=== PATIENT | male | born 1955 ===

== ENCOUNTER 2025-11-14 14:28 | Outpatient (AMB) | payer OTHER, SELFPAY ==
--- NOTE | 2025-11-14 14:30 | A.OFFVIS_ITS ---
Intake Visit Reasons: follow up / medications HPI Comments Details: 70 years old man with Parkinson's disease and insomnia who was initially diagnosed with Parkinson's in 2014 and [place]. He is presenting for a follow-up visit for management of Parkinson's disease. He has a 10-year history of Parkinson's disease and reports ongoing symptoms of twitching, teeth clenching, and balance issues. He currently takes carbidopa- levodopa 1.5 tablets four times a day at 7 AM, 11 AM, 3 PM, and 7 PM. The patient reports dyskinesia in his legs and states his worst symptoms occur between 2 PM and 7 PM. He also experiences intermittent neuropathy in his feet, which he feels for about 10 minutes when going to bed or in the morning, but it resolves with walking. He reports excessive sweating. He has a history of anxiety and depression, for which he takes diazepam as needed and bupropion. 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 He also struggles with poor sleep, getting 4-5 hours per night and waking up around 3 or 4 AM, and occasionally takes half a pill of trazodone. Despite his symptoms, the patient remains active, working out daily and climbing three flights of stairs ten times every day. He wears a mouth guard at night for teeth clenching but reports it is ineffective. Review of Systems Narrative - Neurological: Reports twitching, balance problems, dyskinesia in legs, and teeth clenching. - Reports intermittent neuropathy in feet that resolves with walking. - Denies teeth grinding. - Psychiatric: Reports anxiety and depression related to functional decline. 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 - Reports excessive sweating and chronically cold hands. Physical Exam Neuro Other: Mental Status: Alert and oriented to person, place, and time. Normal attention. Normal spontaneous speech, fluency, and comprehension. Affect is anxious. Cranial Nerves: CN II: Visual ray full to confrontation, visual acuity intact. CN III, IV, : Pupils equal, round, reactive to light and accommodation. Extraocular movements are normal. CN V: Facial sensation is normal. CN VII: Facial movements symmetrical. CN VIII: Hearing intact to bedside conversation is normal. CN IX, X: Palate elevates symmetrically. CN XI: Shoulder shrug and head turn symmetrical. CN XII: Tongue midline without atrophy or fasciculations. Extrapyramidal: Full facial expressions and blinking. No rigidity. Movements are appropriate with no tremor or abnormality. Speech: Normal; no dysarthria or tremor. Assessment & Plan Assessment & Plan (1) Parkinson disease: Comment: MRI brain WO at [facility] in Jun 2024: Mild atrophy and mild MVD. 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 To address his afternoon dyskinesia, I recommended he experiment with reducing his 3 PM dose from 1.5 tablets to 1 tablet, cautioning it could potentially slow him down. For his bothersome teeth clenching, I proposed Botox injections as a treatment option and explained that we would first seek pre-authorization from his insurance, as the medication is expensive, before proceeding. We also agreed to increase his bupropion to 300 mg daily to better manage his depression. The patient inquired about stem cell therapy, and I advised against pursuing such treatments in other countries like [place] at this time, as they are not approved in the [place] and I would not recommend them. Medications: New onabotulinumtoxinA (Botox) 100 units intramuscularly every 3 months; 1 ea 0RF bupropion HCl XL 300 mg PO QAM 90 tabs 0RF carbidopa-levodopa 25-100 mg (Sinemet) 1.5 tabs PO QID 540 tabs 0RF 90 days Coding Level of Care Code Est Pt Level 4 (51192) Diagnoses Parkinson's disease without dyskinesia or fluctuating manifestations G20.A1 Dyskinesia presence: without dyskinesia Fluctuating manifestations: without fluctuating manifestations Insomnia due to medical condition G47.01 Insomnia type: due to medical condition Anxiety F41.9 Oral dystonia G24.4
--- OUTSIDE RECORDS SUMMARY | 2025-11-14 16:50 | XMS_ITS | Clinical Summary ---
Author Organization [facility] [address] Address [address] [place] [address] Phone Care Team Providers Care Plate Printer Name Role Phone Isabel Blackburn MD Primary Care Provider Allergies No known active allergies Medications losartan (COZAAR) 50 mg tabletIndications :Primary hypertension Take 1 tablet (50 mg total) by mouth 2 (two) times a day. 180 tablet 1 5 Active buPROPion XL (WELLBUTRIN XL) 150 mg 24 hr tabletIndications :Anxiety and depression Take 1 tablet (150 mg total) by mouth 1 (one) time each day in the morning. Do not crush, chew, or split. 90 tablet 1 5 Active diazePAM (VALIUM) 5 mg tablet Take 1 tablet (5 mg total) by mouth 1 (one) time each day. Active carbidopa-levodop a CR (SINEMET CR) 25-100 mg per CR tablet Take 1.5 tablets by mouth 4 (four) times a day. Do not crush, chew, or split. Per neuro Active amLODIPine (NORVASC) 2.5 mg tablet Take 1 tablet (2.5 mg total) by mouth 1 (one) time each day. As needed if BP > 140/90 Active Active Problems Problem Noted Date Diagnosed Date Anxiety and depression 06/21/2024 Parkinson's disease 06/21/2024 Primary hypertension 06/21/2024 Surgical History Surgery Date Site/Laterality Comments CHOLECYSTECTOMY PROCEDURE: HISTORICAL CHOLECYSTECTOMY Medical History Medical History Date Comments H. pylori infection 06/22/2024 DX:H. pylori infection Family History Relation Name Status Comments Father Mother Social History Tobacco Use Types Packs/Day Years Used Date Smoking Tobacco: Never Smokeless Tobacco: Never Tobacco Cessation:Counseling Given: Not Answered Alcohol Use Standard Drinks/Week Comments Not Currently 0 (1 standard drink = 0.6 oz pur e alcohol) Sex and Gender Information Value Date Recorded Sex Assigned at Not on file Legal Sex Male 11:04 AM EDT Gender Identity Not on file Sexual Orientation Not on file Last Filed Vital Signs Vital Sign Reading Time Taken Comments Blood Pressure 175/100 07/12/2025 9:36 AM EDT Pulse 65 07/12/2025 9:36 AM EDT Temperature 36.1 C (97 F) 03/08/2025 9:23 AM EDT Respiratory Rate 16 03/08/2025 9:23 AM EDT Oxygen Saturation - - Inhaled Oxygen Concentration - - Weight 81.2 kg (179 lb) 07/12/2025 9:36 AM EDT Height 177.8 cm (5' 10 ) 07/12/2025 9:36 AM EDT Body Mass Index 25.68 07/12/2025 9:36 AM EDT Plan of Treatment Upcoming Encounters Date Type Department Care Team (Late st Contact Info) Description 12/20/2025 9:00 AM EST Office Visit Adult Medicine - [place] [address] [place] [id number] Isabel Blackburn MD [address] [place] [address] Health Maintenance Due Date Last Done Comments Colorectal Cancer Screening: Colonoscopy 1955 Drug Screen 1955 Non-Opioid Controlled Substance Agreement 1955 Pneumococcal Vaccine: 50+ Years (1 of 1 - PCV) 2004 Zoster Vaccines (1 of 2) 2004 Hepatitis C Screening 06/09/2024 Social Influencers of Health Screening 06/09/2024 COVID-19 Vaccine ( - 2024-2 6 season) 2025 Influenza Vaccine (#1) 2025 Falls Risk Assessment 12/01/2025 12/01/2024 , 12/01/2024 Medicare Annual Wellness Visit 12/01/2025 12/01/2024 Hypertension/CHF/CAD Annual BMP Blood Test 07/12/2026 07/12/2025, 06/21/2024, 06/21/2024 RSV Immunization Adult Patients (1 - 1-dose 75+ series) 2029 Cholesterol Screening (Lipid Panel) 07/12/2030 07/12/2025 DTaP,Tdap,and Td Vaccines (2 - Td or Tdap) 04/22/2035 04/22/2025 Depression Screening Completed 12/01/2024 HIB Vaccines Aged Out No longer eligi ble based on patient's age to complete this topic HPV Vaccines Aged Out No longer eligi ble based on patient's age to complete this topic Hepatitis A Vaccines Aged Out No long er eligible based on patient's age to complete this topic Hepatitis B Vaccines Aged Out No long er eligible based on patient's age to complete this topic IPV Vaccines Aged Out No longer eligi ble based on patient's age to complete this topic MMR Vaccines Aged Out No longer eligi ble based on patient's age to complete this topic Meningococcal ACWY Vaccine Aged Out N o longer eligible based on patient's age to complete this topic Meningococcal B Vaccine Aged Out No l onger eligible based on patient's age to complete this topic RSV Immunization Patients Under 20 months Aged Out No longer eligible b ased on patient's age to complete this topic Varicella Vaccines Aged Out No longer eligible based on patient's age to complete this topic Procedures Procedure Name Priority Date/Time Associated Diagnosis Comments COMPREHENSIVE METABOLIC PANEL Routine 07/12/2025 10:29 AM EDT Primary hypertension LIPID PANEL WITH REFLEX TO DIRECT LDL Routine 07/12/2025 10:29 AM EDT Encounter for lipid screening for cardiovascular disease from Last 3 Months or Most Recently Relevant to Health Maintenance Results * Lipid panel with reflex to direct LDL (07/12/2025 10:29 AM EDT) [facility] Cholesterol 153 0 - 200 mg/dL LAB CHEMISTRY METHOD 07/12/2025 3:55 PM EDT [facility] Triglycerides 58 0 - 150 mg/dL LAB CHEMISTRY METHOD 07/12/2025 3:55 PM EDT [facility] HDL 66 >=40 mg/dL LAB CHEMISTRY METHOD 07/12/2025 3:55 PM EDT [facility] LDL Calculated 75 0 - 100 mg/dL LAB CHEMISTRY METHOD 07/12/2025 3:55 PM EDT [facility] Comment:Estimated LDL Calcul ated using equation: Total cholesterol - HDL cholesterol - (Triglycerides/5) VLDL Cholesterol Sesar 11.6 mg/dL LAB CHEMISTRY METHOD 07/12/2025 3:55 PM EDT [facility] Non HDL Chol. (LDL+VLDL) 87 <145 mg/dL LAB CHEMISTRY METHOD 07/12/2025 3:55 PM EDT [facility] Chol/HDL Ratio 2.3 0.0 - 4.4 LAB CHEMISTRY METHOD 07/12/2025 3:55 PM EDT [facility] Blood Venous blood specimen / Unknown Venipuncture / Unknown 07/12/2025 10:29 AM EDT 07/12/2025 10:29 AM EDT us Antoni PINEDA LAB BLOOD ORDERABLES Final Re sult [facility] [address] [place] [address], * Comprehensive metabolic panel (07/12/2025 10:29 AM EDT) Sodium 142 133 - 145 mmol/L LAB CHEMISTRY METHOD 07/12/2025 3:55 PM EDT [facility] Potassium 4.2 3.5 - 5.5 mmol/L LAB CHEMISTRY METHOD 07/12/2025 3:55 PM EDT [facility] Chloride 109 96 - 110 mmol/L LAB CHEMISTRY METHOD 07/12/2025 3:55 PM EDT [facility] CO2 27 21 - 32 mmol/L LAB CHEMISTRY METHOD 07/12/2025 3:55 PM [facility] Anion Gap 6 3 - 11 LAB CHEMISTRY METHOD 07/12/2025 3:55 PM [facility] Glucose 82 70 - 100 mg/dL LAB CHEMISTRY METHOD 07/12/2025 3:55 PM [facility] BUN 13 5 - 25 mg/dL LAB CHEMISTRY METHOD 07/12/2025 3:55 PM [facility] Creatinine 1.11 0.70 - 1.30 mg/dL LAB CHEMISTRY METHOD 07/12/2025 3:55 PM [facility] eGFR 71 >=60 mL/min/1. 73m2 LAB CHEMISTRY METHOD 07/12/2025 3:55 PM [facility] Comment:Calculation based on the Chronic Kidney Disease Epidemiology Collaboration (CKD-EPI) equation refit without adjustment for race. BUN/Creatinine Ratio 11.7 LAB CHEMISTRY METHOD 07/12/2025 3:55 PM [facility] Calcium 8.9 8.5 - 10.5 mg/dL LAB CHEMISTRY METHOD 07/12/2025 3:55 PM [facility] AST (SGOT) 24 10 - 42 unit/L LAB CHEMISTRY METHOD 07/12/2025 3:55 PM [facility] ALT (SGPT) 15 10 - 60 unit/L LAB CHEMISTRY METHOD 07/12/2025 3:55 PM [facility] Alkaline Phosphatase 74 42 - 121 unit/L LAB CHEMISTRY METHOD 07/12/2025 3:55 PM [facility] Total Protein 6.8 6.0 - 8.0 g/dL LAB CHEMISTRY METHOD 07/12/2025 3:55 PM [facility] Albumin 4.4 3.2 - 5.0 g/dL LAB CHEMISTRY METHOD 07/12/2025 3:55 PM [facility] Total Bilirubin 0.9 0.0 - 1.4 mg/dL LAB CHEMISTRY METHOD 07/12/2025 3:55 PM EDT [facility] Blood Venous blood specimen / Unknown Venipuncture / Unknown 07/12/2025 10:29 AM EDT 07/12/2025 10:29 AM EDT us Antoni PINEDA LAB BLOOD ORDERABLES Final Re sult [facility] [address] [place] [address], from Last 3 Months or Most Recently Relevant to Health Maintenance Insurance [employer] on file Advance Directives Documents on File Type Date Recorded 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
== END 2025-11-14 14:55 | disposition home or self-care (01) ==
PROVIDERS: PCP Family Medicine; Visit Provider Psychiatry & Neurology Neurology
DX: G20.A1 Parkinson's disease without dyskinesia, without mention of fluctuations (principal); G47.01 Insomnia due to medical condition; F41.9 Anxiety disorder, unspecified; G24.4 Idiopathic orofacial dystonia
CPT/HCPCS: 99214